=== PATIENT | female | born 1960 | race Caucasian/White ===

== ENCOUNTER → 2019-12-02 09:01 | Outpatient (CLI) | payer OTHER, SELFPAY ==
--- NOTE | 2019-12-02 09:09 | XR_ITS ---
PROCEDURE: XR FOOT WT BEARING RT 3V CLINICAL INDICATION: pain COMPARISON: No exams were available for comparison FINDINGS: No fracture or dislocation. No lytic or blastic change. There is normal mineralization. 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 Small calcaneal spur. Mildly prominent os trigonum. IMPRESSION: Mild degenerative change. Other nonspecific findings as described Dictated by: Yoshi Baca MD 12/02/2019 16:59 Yoshi Baca MD in [facility] 12/02/2019 16:59
--- NOTE | 2019-12-02 09:09 | XR_ITS ---
PROCEDURE: XR FOOT WT BEARING LT 3V CLINICAL INDICATION: pain COMPARISON: No exams were available for comparison FINDINGS: No fracture or dislocation. No lytic or blastic change. There is normal mineralization. Minimal osteoarthritic change talonavicular and navicular cuneiform joint with borderline pes planus. Minimal osteoarthritic change 1st metatarsophalangeal joint. Other findings:None. IMPRESSION: Minimal degenerative change with mild pes planus Dictated by: Yoshi Baca MD 12/02/2019 16:58 Yoshi Baca MD in [facility] 12/02/2019 16:58
== END ==
PROVIDERS: PCP Family Medicine; Visit Provider Podiatrist
DX: M79.673 Pain in unspecified foot (principal)
CPT/HCPCS: 73630